=== PATIENT | male | born 1990 | race Caucasian/White ===

== ENCOUNTER 2018-03-25 02:50 | Emergency (ER) | payer SELFPAY ==
--- NOTE | 2018-03-25 03:24 | PDOC ---
Attending Attestation - Resident Resident Name: Pati Munoz - ED Attending Attestation I have performed the following: I have examined & evaluated the patient, The case was reviewed & discussed with the resident, I agree w/resident's findings & plan - HPI HPI: 03/30/18 00:35 Pt comes after a slip in his dad[place] His legs came up when he slipped in the soil and he landed on his coccyx, now with tailbone pain. He had episode of defecation on self during the fall. However he has been continent of stool and urine since that time. Pt wants to make sure that his coccyx is okay. - Physicial Exam PE: 03/30/18 00:36 Pt has no neuro deficits. He walked here. He has no pinpoint or soft sensation deficits in the peroanal /perineal/leg/ buttock area. Pt has normal rectal tone. Rest of exam is normal. Pt has point tenderness over his coccyx. - Medical Decision Making 03/30/18 00:38 XRAYs normal. Pt eill be treated for muscle and bony pain. 03/30/18 00:39 He is stable for d/c home. 03/30/18 00:42 Patient Name: ANASTACIO ALTMAN THIS IS A PRELIMINARY REPORT FROM IMAGING INFORMATION ASSURANCE MANAGER DATE OF SERVICE: 2018-03-25 04:21:31 IMAGES: 3 EXAM: COCCYX HISTORY: Pain COMPARISON: None. FINDINGS: No discrete fracture or dislocation The joint spaces are normal. If symptoms persist, CT or MRI correlation may be of value THIS DOCUMENT HAS BEEN ELECTRONICALLY SIGNED
--- NOTE | 2018-03-25 03:49 | PDOC ---
History of Present Illness - General Chief Complaint: Back Pain Stated Complaint: FALL/BACK PAIN Time Seen by Provider: 03/25/18 03:18 - History of Present Illness Initial Comments: 03/25/18 03:45 27 year old man with no past medical history who presents w/ 10/10 back pain 1 day after fall landing on his buttocks on the edge of a bricks while in the [place]. He defecated on himself at the time of the incident and required assisstance to stand up and walk. The patient has since had difficulty walking due to pain. The pain is improved with standing or lying flat and is worsened by sitting up. He denies any urinary incontinence, fecal incontinence, numbness or tingling of the legs, or radiating of the pain. Past History - Past Medical History Allergies/Adverse Reactions: Allergies Allergy/AdvReac Type Severity Reaction Status Date / Time No Known Allergies Allergy Verified 03/25/18 04:44 Home Medications: Ambulatory Orders NK [No Known Home Medication] 03/25/18 *Physical Exam - Physical Exam Comments: 03/25/18 04:16 point tenderness to palpatio of the coccyx normal rectal tone no saddle anestheesia. Medical Decision Making - Medical Decision Making 03/25/18 03:48 27 year old man with no past medical history who presents w/ 10/10 back pain 1 day after fall landing on his buttocks on the edge of a bricks while in the [place]. He defecated on himself at the time of the incident and required assisstance to stand up and walk. The patient has since had difficulty walking due to pain. The pain is improved with standing or lying flat and is worsened by sitting up. He denies any urinary incontinence, fecal incontinence, numbness or tingling of the legs, or radiating of the pain. DDX including but not limited to: W/U: - TX: - Scores: ED Course: *DC/Admit/Observation/Transfer Diagnosis at time of Disposition: Coccyx contusion - Discharge Dispostion Disposition: HOME Condition at time of disposition: Fair Decision to Admit order: No - Referrals Referrals: Dane Mahmood MD [Staff Physician] - - Patient Instructions Printed Discharge Instructions: Coccydynia Additional Instructions: You were seen in the ED for complaints of lower back/coccyx pain. In the ED you were evaluated with imaging. Your results were unremarkable. There does not appear to be an acute need for immediate hospitalization. You are advised to follow up with your Primary Care Physician within 1 week. You were given a referral to Orthopedics for follow up and are advised to follow up within 1 week. Alternate between warm compress and ice on the area, take over the counter Motrin and Tylenol as needed. Use a round pillow to sit on when necessary. Return to the ED immediately if you experience worsening tailbone pain, urinary or fecal incontinence, numbness of tingling in legs or buttocks or if any fever , redness, or drainage occurs from the area of injury. - Post Discharge Activity
[2018-03-25 03:50] VITALS: BMI 31.9
[2018-03-25] MEDS ORDERED: IBUPROFEN 400 MG TABLET (FP) PO ONE ×2 (04:06→04:40)
[2018-03-25 05:30] VITALS: BP 132/80; PULSE 87; TEMP 98.3
== END 2018-03-25 05:36 | disposition home or self-care (01) ==
LOC: JER 02:50
DX: S30.0XXA Contusion of lower back and pelvis, initial encounter (principal); W18.09XA Striking against other object with subsequent fall, initial encounter; Y93.89 Activity, other specified; Y92.89 Other specified places as the place of occurrence of the external cause; Y99.8 Other external cause status
CPT/HCPCS: 72220-TC-FY; 99282-25